=== PATIENT | female | born 1980 | race Asian ===

== ENCOUNTER 2017-09-25 19:32 | Emergency (ER) | payer BC, OTHER ==
[2017-09-25 20:37] LABS: URINE HCG POC HCG NEGATIVE (Negative)
[2017-09-25 20:39] LABS: ADD MAN DIFF? NO
[2017-09-25 20:43] LABS: BASO % 0 % (0-3); EOS % 0 % (0-3); HEMATOCRIT 32.4 % (36.0-47.0); HEMOGLOBIN 10.2 g/dL (12.0-15.5); LYMPH # 2.5 x10^3/uL (1.0-4.8); LYMPH % 23 % (24-48); MEAN CORPUSCULAR HEMOGLOBIN 22 pg (25-35); MEAN CORPUSCULAR HGB CONC 32 g/dL (31-37); MEAN CORPUSCULAR VOLUME 69 fL (79-100); MONO # 1.1 x10^3/uL (0.0-1.1); MONO % 10 % (0-9); NEUT # 7.4 x10^3uL (1.8-7.7); NEUT % 67 % (31-73); PLATELET COUNT 313 x10^3/uL (140-400); RED BLOOD COUNT 4.73 x10^6/uL (3.50-5.40); RED CELL DISTRIBUTION WIDTH 17.8 % (11.5-14.5); WHITE BLOOD COUNT 11.1 x10^3/uL (4.0-11.0)
[2017-09-25] MEDS: ASPIRIN CHEWABLE 81 MG TABLET. PO (20:54)
[2017-09-25 20:55] LABS: D-DIMER < 0.27 ug/mlFEU (0.00-0.50)
[2017-09-25 21:00] LABS: NEG OBC SER NEG; POS OBC SER POS; PREG TEST PT QUAL NEGATIVE (NEG)
[2017-09-25 21:06] LABS: TROPONINI < 0.017 ng/mL (0.000-0.055)
[2017-09-25 21:09] LABS: MICROCYTOSIS MOD; PLT ESTIMATE ADEQUATE (ADEQUATE); STOMATOCYTES OCC
[2017-09-25 21:11] LABS: ALBUMIN 3.4 g/dL (3.4-5.0); ALBUMIN/GLOBULIN RATIO 0.7 (1.0-1.7); ALK PHOS 91 U/L (46-116); ALT (SGPT) 23 U/L (14-59); ANION GAP 14 (6-14); AST (SGOT) 18 U/L (15-37); BLOOD UREA NITROGEN 9 mg/dL (7-20); BUN/CREATININE RATIO 23 (6-20); CALCIUM 8.6 mg/dL (8.5-10.1); CARBON DIOXIDE 24 mmol/L (21-32); CHLORIDE 103 mmol/L (98-107); CREATININE 0.4 mg/dL (0.6-1.0); GFR 181.6; GLUCOSE 106 mg/dL (70-99); SODIUM 141 mmol/L (136-145); TOTAL BILIRUBIN 0.6 mg/dL (0.2-1.0); TOTAL PROTEIN 8.2 g/dL (6.4-8.2)
[2017-09-25 21:12] LABS: POTASSIUM 2.7 mmol/L (3.5-5.1)
[2017-09-25] MEDS: POTASSIUM CHLORIDE 20 MEQ TABLET.ER. PO (21:40)
== END 2017-09-25 21:54 | disposition home or self-care (01) ==
LOC: ER 19:32
DX: M94.0 Chondrocostal junction syndrome [Tietze] (principal); E87.6 Hypokalemia
CPT/HCPCS: 36415; 71046; 80053; 81025; 84484; 84703; 85025; 85379; 93005; 99285-25

== ENCOUNTER 2017-11-15 04:56 | Emergency (ER) | payer BC ==
[2017-11-15] MEDS: HYDROmorphone 2 MG/ML VIAL IM (05:27)
== END 2017-11-15 05:58 | disposition home or self-care (01) ==
LOC: ER 04:56
DX: M54.42 Lumbago with sciatica, left side (principal); M25.552 Pain in left hip; M79.652 Pain in left thigh
CPT/HCPCS: 96372; 99283-25; J1170